=== PATIENT | female | born 1985 | race Two or more races ===

== ENCOUNTER 2021-02-21 05:10 | Inpatient (IN) | payer OTHER ==
[~2021-02-21] VITALS: Ht 149.9 cm; Wt 74.4 kg
[2021-02-21] MEDS ORDERED: PRENATAL TABLE1 EAC1 PO (05:55)
[2021-02-21] MEDS ORDERED: IRON325 MG PO (05:56)
[2021-02-21] MEDS ORDERED: ECOTRIN81 MG PO (05:56)
== END 2021-02-23 16:04 | disposition home or self-care (01) | DRG 807 ==
LOC: OB/GYN 05:10 → LDR 05:10 → OB/GYN 14:33
PROVIDERS: ADMIT Specialist; ATTEND Specialist
PROC: 10E0XZZ Delivery of Products of Conception, External Approach (ICD-10-PCS; principal; 2021-02-21)
PROC: 0W8NXZZ Division of Female Perineum, External Approach (ICD-10-PCS; 2021-02-21)
PROC: 4A1HXFZ Monitoring of Products of Conception, Cardiac Rhythm, External Approach (ICD-10-PCS; 2021-02-21)
DX: O80 Encounter for full-term uncomplicated delivery (principal); Z37.0 Single live birth; Z3A.39 39 weeks gestation of pregnancy

== ENCOUNTER 2022-11-27 11:30 | Day surgery (SDC) | payer OTHER ==
[~2022-11-27] VITALS: Ht 149.9 cm; Wt 54.4 kg
[~2022-11-27 11:30] MED LIST: ECOTRIN81 MG PO; IRON325 MG PO; PRENATAL TABLE1 EAC1 PO; [UNRECOGNIZED DRUG - REMARK] PO
== END 2022-11-27 18:00 | disposition home or self-care (01) ==
LOC: CIR.AMB 11:30
PROVIDERS: ATTEND Specialist
DX: Z30.2 Encounter for sterilization (principal); Z20.822 Contact with and (suspected) exposure to COVID-19